=== PATIENT | female | born 1975 | race Caucasian/White ===

== ENCOUNTER 2016-07-12 15:25 | Emergency (ER) | payer MEDICAID ==
[~2016-07-12] VITALS: Ht 167.6 cm; Wt 53.0 kg
[~2016-07-12 15:25] MED LIST: ALBU1AER INH; ALBU6.7H INH; ALBU8I INH; ATEN-100 PO; DOXY100T PO; PRED20 PO; ZITH250T PO
--- NOTE | 2016-07-12 15:36 | PD ---
Physical Exam Date Seen by Provider: Jul 12, 2016 Time Seen by Provider: 15:31 Narrative 41 y/o female presents with left posterior shoulder blade and posterior lateral upper and mid thoracic pain since throwing a Cast-net while fishing 10 days ago. Pain 5/10 at rest with increased keller to 9/10 with certain movements. Pain worse with deep breath and cough as well as with certain movements. Pain not worse or better. No fever or chills. V/S stable. Awaiting bed placement. [facility] Medical Record Reviewed: Yes Supervised Visit with REBECA: Yes Condition: Stable Vinicius Tay Jul 12, 2016 15:36
[2016-07-12] MEDS ORDERED: ROBA500T PO (16:04)
[2016-07-12] MEDS ORDERED: IBUP800T23 PO (16:04)
--- NOTE | 2016-07-12 16:04 | PD ---
HPI . right shoulder pain Chief Complaint: Injury Time Seen by Provider: 15:57 Travel History International Travel<30 days: No Contact w/Intl Traveler<30days: No Traveled to known affect area: No History of Present Illness HPI 41 y/o female presents with right posterior shoulder blade and posterior lateral upper and mid thoracic pain since throwing a Cast-net while fishing 10 days ago. Pain 5/10 at rest with increased keller to 9/10 with certain movements. She tells me this started when she was using the cast net to fish. She says she switched to a smaller cast net, but is still experiencing pain. She got rid of her ex boyfriend and started fishing to take her mind off of things. She denies any trauma to the area. She is right handed dominant. [facility] Past Medical History Medical History: Denies Significant Hx Diminished Hearing: No Hypertension: Yes Immunizations Current: Yes Tetanus Vaccination: Unknown Influenza Vaccination: No ?: Not LMP: 03/24/2008 : 6 Para: 5 Miscarriage: 1 Tubal Ligation: Yes Past Surgical History Genitourinary Surgery: Yes (ablation) Gynecologic Surgery: Yes (UTERINE ABLATION) Social History Alcohol Use: Yes (occu x 4 days) Tobacco Use: Yes (daily) Substance Use: No Allergies-Medications (Allergen,Severity, Reaction): Coded Allergies: Penicillin (Verified Allergy, Severe, Hives, 09/01/14) Reported Meds & Prescriptions Reported Meds & Active Scripts Active Ibuprofen 800 Mg Tab 800 Mg PO TID Robaxin (Methocarbamol) 500 Mg Tab 500 Mg PO TID Deltasone (Prednisone) 20 Mg Tab 20 Mg PO Q12HR 4 Days Zithromax Z-Aldo (Azithromycin) 250 Mg Tab 250 Mg PO DIRECTED 5 Days 500 MG (2 TABLETS) PO ON DAY 1, THEN 250 MG (1 TABLET) PO ON DAYS 2 TO 5. Proventil Hfa (Albuterol Sulfate) 6.7 Gm Aero 2 Puff INH Q4H PRN * SHAKE WELL BEFORE USE * Doxycycline Hyclate 100 mg (Doxycycline Hyclate) 100 Mg Tab 100 Mg PO BID TAKE UNTIL GONE Ventolin Hfa (Albuterol Sulfate) 8 Gm Aero 2 Puff INH Q6 PRN * SHAKE WELL BEFORE USE * Proair Hfa (Albuterol Sulfate) 8.5 Gm Aero 2 Puff INH Q4 * SHAKE WELL BEFORE USE * Reported Atenolol 25 Mg Tab 25 Mg PO DAILY Review of Systems General / Constitutional: No: Fever Eyes: No: Visual changes HENT: No: Headaches Cardiovascular: No: Chest Pain or Discomfort Respiratory: No: Shortness of Breath Gastrointestinal: No: Abdominal Pain Genitourinary: No: Dysuria Musculoskeletal: Positive: Pain (right shoulder pain) Skin: No Rash Neurologic: No: Weakness Psychiatric: No: Depression Endocrine: No: Polydipsia Hematologic/Lymphatic: No: Easy Bruising Physical Exam Narrative GENERAL: AAO x 3, no acute distress, Well-nourished, well-developed patient. SKIN: Warm and dry. No visible rashes or bruising. HEAD: Normocephalic and atraumatic. EYES: No scleral icterus. No injection or drainage. ENT: No nasal drainage noted. Mucous membranes pink. Airway patent. NECK: Supple, trachea midline. No JVD. CARDIOVASCULAR: Regular rate and rhythm without murmurs, gallops, or rubs. RESPIRATORY: Breath sounds equal bilaterally. No accessory muscle use. No rhonchi or rales. GASTROINTESTINAL: Abdomen soft, non-tender, nondistended. EXTREMITIES: No cyanosis or edema. Full ROM,b/l shoulder but limited in right due to pain. Pain with internal rotation of right shoulder. BACK: Nontender without obvious deformity. No CVA tenderness. PSYCH: AAO x 3, normal affect. Data Data Last Documented VS Vital Signs Date Time Temp Pulse Resp B/P Pulse Ox O2 Delivery O2 Flow Rate FiO2 07/12/16 16:11 97.0 92 18 140/99 100 Room Air MDM Medical Decision Making Medical Screen Exam Complete: Yes Emergency Medical Condition: Yes Medical Record Reviewed: Yes Differential Diagnosis right shoulder pain, rotator cuff injury, less likely dislocation, less likely fracture Narrative Course 41 y/o female presents with right posterior shoulder blade and posterior lateral upper and mid thoracic pain since throwing a Cast-net while fishing 10 days ago. Pain 5/10 at rest with increased keller to 9/10 with certain movements. She tells me this started when she was using the cast net to fish. She says she switched to a smaller cast net, but is still experiencing pain. She got rid of her ex boyfriend and started fishing to take her mind off of things. She denies any trauma to the area. She is right handed dominant. Patient seen and examined. She appears to have a possible rotator cuff injury on her right shoulder. I've explained this to her and she will establish with a primary care provider for further workup and treatment. In the meantime I'll provide her with a course of anti-inflammatories and some muscle relaxers to help ease her discomfort. We have discussed the side effects of muscle relaxers. Patient verbalized understanding of instructions, questions were answered, and thanked me for their care. I advised them if their condition worsens, please return to the nearest emergency room for further care. Diagnosis Primary Impression: Right shoulder pain Qualified Code: M25.511 - Acute pain of right shoulder Additional Impression: Rotator cuff injury Qualified Code: S46.001A - Rotator cuff injury, right, initial encounter Patient Instructions: General Instructions Additional Instructions: Please return to emergency department if your symptoms return or worsen. Follow up with your primary care provider. Take medications as prescribed. Muscle relaxers can cause drowsiness. Do not drive, swim or operate heavy machinery while using these medications. Med/Other Pt SpecificInfo: Prescription(s) given Scripts Ibuprofen 800 Mg [id number] Mg PO TID #21 TAB Prov:Aniceto Valente MD 07/12/16 Methocarbamol (Robaxin)500 Mg [id number] Mg PO TID #21 TAB Ref 0 Prov:Aniceto Valente MD 07/12/16 Disposition: 01 DISCHARGE HOME Condition: Stable Janeen Bassett Jul 12, 2016 16:04
[2016-07-12 16:11] VITALS: BP 140/99; PULSE 92; RESP 18; TEMP 97; O2SAT 100
== END 2016-07-12 16:23 | disposition home or self-care (01) ==
LOC: NEPK 15:25
DX: S46.001A Unspecified injury of muscle(s) and tendon(s) of the rotator cuff of right shoulder, initial encounter (principal); X58.XXXA Exposure to other specified factors, initial encounter; Y93.89 Activity, other specified
CPT/HCPCS: 99283